=== PATIENT | female | born 1990 | race Caucasian/White ===

== ENCOUNTER 2018-03-08 16:16 | Emergency (ER) | payer OTHER ==
[2018-03-08] MEDS: IBUPROFEN 200 MG TAB PO (17:10)
[2018-03-08 17:16] LABS: URINE BLOOD (Dip) POC Trace-intact (NEGATIVE); URINE GLUCOSE (Dip) POC Negative (NEGATIVE); URINE KETONES (Dip) POC Negative (NEGATIVE); URINE LEUKOCYTE EST (Dip) POC Negative (NEGATIVE); URINE NITRITE (Dip) POC Negative (NEGATIVE); URINE TOTAL PROTEIN POC Negative (NEGATIVE)
== END 2018-03-08 17:30 | disposition home or self-care (01) ==
LOC: FTE 16:16
DX: R51 Headache (principal)
CPT/HCPCS: 81003; 81025; 99283